=== PATIENT | female | born 1960 | race Caucasian/White ===

== ENCOUNTER 2018-09-14 07:25 | Day surgery (SDC) | payer OTHER ==
[2018-09-14] MEDS ORDERED: Lactated Ringers 1,000 ML IV SCH (07:45)
[2018-09-14] MEDS ORDERED: Cyanocobalamin (Vitamin B12) 1,000 MCG/ML SDV IM ONE (08:00)
[2018-09-14] MEDS ORDERED: Propofol 200 MG/20 ML SDV ONE (08:20)
[2018-09-14] MEDS ORDERED: fentaNYL 100 MCG/2 ML SDV ONE (08:20)
[2018-09-14] MEDS ORDERED: Midazolam 1 MG/ML 2 ML SDV ONE (08:20)
[2018-09-14] MEDS ORDERED: Glycopyrrolate 0.2 MG/ML 2 ML SDV IVPUSH ONE (08:30)
[2018-09-14] MEDS ORDERED: MVI, Adult with Vitamin K 10 ML, Thiamine 200 MG, Chromium/Copper/Mang/Selen/Zn 1 ML in... IV ONE ×4 (08:45)
--- NOTE | 2018-09-24 23:11 | OR ---
DATE OF PROCEDURE: 09/14/2018 PREOPERATIVE DIAGNOSIS: Dysphagia and heartburn status post sleeve gastrectomy. POSTOPERATIVE DIAGNOSES: 1. Upper GI endoscopy status post sleeve gastrectomy showing;. a. No stricturing or gastric outlet obstruction. 2. Mild amount of retained gastric bile and gastritis. OPERATIVE PROCEDURE: Upper GI endoscopy with antral biopsies for CLOtest. ANESTHESIA: IV sedation. INDICATION FOR PROCEDURE: This is a 58-year-old female status post sleeve gastrectomy done on 03/05/2018 presenting with some problems with dysphagia and heartburn. She did have a hiatal hernia repair at the time of the procedure. She also recently having some problems with dysphagia and heartburn and plan is to proceed with upper GI endoscopy with biopsies and/or dilation as indicated. Potential risks including bleeding and perforation were discussed, and the patient wishes to proceed. DETAILS OF PROCEDURE: The patient was taken to the operating room and placed in a left lateral decubitus position. IV sedation was administered, after which the upper GI endoscope was passed orally through the length of the esophagus and then into the stomach, and from there through the length of the stomach through the pyloric channel and then into the junction of the third and fourth portions of the duodenum. Findings included normal hypopharynx, larynx, upper esophageal sphincter, and esophageal body. At the EG junction, this area was fairly wide open. There was minimal if any gross inflammation at the esophagogastric junction and no upward extension of the gastroesophageal junction and mucosal line above the upper gastric folds. As one entered the stomach, there was some retained bile particularly in the more distal stomach which was associated with some redness without erosions or ulcers. The scope was then passed further distally through the pyloric channel into the junction of the third and fourth portions of the duodenum which were otherwise unremarkable. At this point, biopsies were obtained from the antrum and sent for CLOtest for H. pylori. Minimal bleeding from the biopsy sites was seen and the procedure then concluded. At this point, we will place the patient on Carafate 500 mg q.i.d. to be taken on an empty stomach to hopefully provide substantial protection from the bile. With regard to the dysphagia, will be started on Levsin 0.125 mg sublingual q.i.d. p.r.n. for possible esophageal spasm and she will be continuing the Protonix 40 mg a day that she presently has as well and follow up with Lenka Munroe as arranged in October. Demian Brooke MD /[id number]
== END 2018-09-14 12:15 | disposition home or self-care (01) ==
LOC: JP.SDS 07:25
PROVIDERS: ATTEND Surgery
DX: R13.10 Dysphagia, unspecified (principal); R12 Heartburn; K29.70 Gastritis, unspecified, without bleeding; Z98.84 Bariatric surgery status; Z88.6 Allergy status to analgesic agent
CPT/HCPCS: 43239; 87081; J2250; J2704; J3010; J3411; J3420; J3490; J7120

== ENCOUNTER 2019-09-08 05:13 | Day surgery (SDC) | payer OTHER ==
[2019-09-08] MEDS ORDERED: Lactated Ringers 1,000 ML IV SCH (06:00)
[2019-09-08] MEDS ORDERED: MVI, Adult with Vitamin K 10 ML, Thiamine 200 MG, Chromium/Copper/Mang/Selen/Zn 1 ML in... IV ONE ×4 (07:00)
[2019-09-08] MEDS ORDERED: Cyanocobalamin (Vitamin B12) 1,000 MCG/ML SDV IM ONE (07:00)
[2019-09-08] MEDS ORDERED: fentaNYL 100 MCG/2 ML SDV ONE (07:15)
[2019-09-08] MEDS ORDERED: Midazolam 1 MG/ML 2 ML SDV ONE (07:15)
[2019-09-08] MEDS ORDERED: Propofol 200 MG/20 ML SDV ONE (07:15)
[2019-09-08] MEDS ORDERED: Glycopyrrolate 0.2 MG/ML 2 ML SDV IVPUSH ONE (07:15)
--- NOTE | 2019-09-13 13:25 | OR ---
DATE OF PROCEDURE: 09/08/2019 SURGEON: Demian Brooke MD PREOPERATIVE DIAGNOSIS: Nausea and vomiting status post sleeve gastrectomy. POSTOPERATIVE DIAGNOSIS: Nausea and vomiting status post sleeve gastrectomy associated with large amount of retained gastric bile consistent with gastroparesis. OPERATIVE PROCEDURE: Esophagogastroduodenoscopy with antral biopsies for CLOtest. ANESTHESIA: IV sedation. INDICATION FOR PROCEDURE: This is a 59-year-old status post sleeve gastrectomy in February 2018, presenting with some ongoing mid epigastric abdominal pain along with nausea and some intermittent emesis. The plan is to proceed with upper GI endoscopy with biopsies as indicated. Potential risks including bleeding and perforation were discussed, and the patient wishes to proceed. DETAILS OF PROCEDURE: The patient was taken to the operating room and placed in a left lateral decubitus position. IV sedation was administered, after which the upper GI endoscope was passed orally through the length of the esophagus and into the stomach. This was then passed through the length of the sleeve gastrectomy through the antrum and into the proximal duodenum. Findings included normal hypopharynx, larynx, upper esophageal sphincter, and esophageal body. This patient did have a small recurrent hiatal hernia, but not associated with any significant inflammation grossly at or around the EG junction. Within the stomach, there was a large amount of retained bile and diffuse redness associated with that. This would be suggestive of the patient having an element of gastroparesis. Otherwise, the pyloric channel and proximal duodenum were unremarkable. The scope was then withdrawn and biopsies obtained from the antrum and sent for CLOtest for H. pylori. Minimal bleeding from the biopsy sites was seen, and the procedure was then concluded. The patient was taken to the recovery room in satisfactory condition. The plan will be to start the patient on Reglan 10 mg 1/2 hour before breakfast and supper, and we will see the patient back on 09/27. If medical management is unsuccessful in terms of alleviating symptoms, the standard approach would be converting to a Charline-en-Y gastric bypass with concurrent repair of the diaphragmatic hernia. Demian Brooke MD /[id number]
== END 2019-09-08 08:49 | disposition home or self-care (01) ==
LOC: JP.SDS 05:13
PROVIDERS: ATTEND Surgery
DX: R11.2 Nausea with vomiting, unspecified (principal); R10.13 Epigastric pain; K44.9 Diaphragmatic hernia without obstruction or gangrene; G47.33 Obstructive sleep apnea (adult) (pediatric); I10 Essential (primary) hypertension; K21.9 Gastro-esophageal reflux disease without esophagitis; Z98.84 Bariatric surgery status
CPT/HCPCS: 43239; 87081; J2250; J2704; J3010; J3490; J7120

== ENCOUNTER 2020-11-08 09:41 | Day surgery (SDC) | payer BC, MEDICARE, OTHER ==
[~2020-11-08 09:41] MED LIST: MVI, Adult with Vitamin K 10 ML, Thiamine 200 MG, Zinc/Copper/Manganese/Selenium 1 ML i... IV ONE
[2020-11-08] MEDS ORDERED: fentaNYL 100 MCG/2 ML SDV ONE (09:55)
[2020-11-08] MEDS ORDERED: Propofol 200 MG/20 ML SDV ONE (09:55)
[2020-11-08] MEDS ORDERED: Midazolam 1 MG/ML 2 ML SDV ONE (09:56)
[2020-11-08] MEDS ORDERED: Cyanocobalamin (Vitamin B12) 1,000 MCG/ML SDV IM ONE (10:30)
[2020-11-08] MEDS ORDERED: Lactated Ringers 1,000 ML IV SCH (10:45)
[2020-11-08] MEDS ORDERED: Glycopyrrolate 0.2 MG/ML 2 ML SDV IVPUSH ONE (10:45)
[2020-11-08] MEDS ORDERED: MVI, Adult with Vitamin K 10 ML, Thiamine 200 MG, Chromium/Copper/Mang/Selen/Zn 1 ML in... IV ONE ×4 (11:00)
--- NOTE | 2020-11-14 12:17 | OR ---
DATE OF PROCEDURE: 11/08/2020 SURGEON: Demian Brooke MD PREOPERATIVE DIAGNOSIS: Severe heartburn and episodes of regurgitation, status post sleeve gastrectomy. POSTOPERATIVE DIAGNOSES: 1. Severe heartburn and episodes of regurgitation, status post sleeve gastrectomy. 2. Large amount of retained bilious secretions within the stomach with probable recurrent element of hiatal hernia. OPERATIVE PROCEDURE: Upper GI endoscopy. ANESTHESIA: IV sedation. INDICATION FOR PROCEDURE: This is a 60-year-old female, status post sleeve gastrectomy along with hiatal hernia repair on 03/05/2018. Over the last week, she has had increasing problems with severe reflux and occasionally episodes of regurgitation. She does also wake up sometimes coughing having aspirated some element of the reflux material. She has been on Protonix 40 mg b.i.d. along with intermittent oral antacids such as Tums, severe reflux problems. Upper GI endoscopy is to be undertaken for evaluation. Potential risks of the procedure including bleeding and perforation were discussed, and the patient wishes to proceed. DETAILS OF PROCEDURE: The patient was taken to the operating room, placed in a left lateral decubitus position. IV sedation was administered, after which the upper GI endoscope was passed orally through the length of the esophagus and into the stomach and from there through the pyloric channel and into the proximal duodenum. Findings included some redness in the hypopharynx, larynx, upper esophageal sphincter consistent with some ongoing reflux. Within the stomach, there was a fairly large amount of bile-stained material. This would be consistent with the patient probably having an element of gastroparesis contributing to the reflux. The EG junction itself was wide open and there was probably some element of recurrent hiatal hernia present. Otherwise, the stomach, particularly in the antral area was diffusely reddened, likely related to the bile present and the pyloric channel and proximal duodenum were unremarkable. Scope was then withdrawn and the procedure was then concluded. The patient was taken to the recovery room in satisfactory condition. The endoscopic findings and based on clinical situation, the best approach at this point would be to proceed with conversion of this patient to Charline-en-Y gastric bypass. Insurance company will be contacted regarding that issue. Demian Brooke MD /[id number]
== END 2020-11-08 13:10 | disposition home or self-care (01) ==
LOC: JP.SDS 09:41
PROVIDERS: ATTEND Surgery
DX: K21.9 Gastro-esophageal reflux disease without esophagitis (principal); G47.33 Obstructive sleep apnea (adult) (pediatric); I10 Essential (primary) hypertension; Z98.84 Bariatric surgery status
CPT/HCPCS: J2250; J2704; J3010; J3490; J7120

== ENCOUNTER 2020-12-25 07:15 | Inpatient (IN) | payer BC ==
[2020-12-25] MEDS ORDERED: Celecoxib 200 MG Cap PO SCH (08:00)
[2020-12-25] MEDS ORDERED: Acetaminophen 500 MG Tab PO ONE (08:00)
[2020-12-25] MEDS ORDERED: Scopolamine 1.5 MG Transdermal Patch TOP SCH (08:05)
[2020-12-25] MEDS: Dextrose 5%-Lactated Ringers 1,000 ML IV SCH ×2 (08:47→15:03)
[2020-12-25] MEDS ORDERED: cefOXitin 2 GM in Sodium Chloride 0.9% 50 ML IV ONE (09:00)
[2020-12-25] MEDS ORDERED: Dexamethasone 4 MG/ML SDV ONE (09:41)
[2020-12-25] MEDS ORDERED: Propofol 200 MG/20 ML SDV ONE (09:41)
[2020-12-25] MEDS ORDERED: Glycopyrrolate 0.2 MG/ML 5 ML MDV ONE (09:41)
[2020-12-25] MEDS ORDERED: Succinylcholine 200 MG/10 ML MDV ONE (09:41)
[2020-12-25] MEDS ORDERED: Neostigmine Methylsulfate 1 MG/ML 5 ML Syringe ONE (09:41)
[2020-12-25] MEDS ORDERED: Rocuronium 50 MG/5 ML Vial ONE (09:41)
[2020-12-25] MEDS ORDERED: Ondansetron 4 MG/2 ML SDV ONE (09:41)
[2020-12-25] MEDS ORDERED: fentaNYL 250 MCG/5 ML SDV ONE ×2 (09:41→11:37)
[2020-12-25] MEDS ORDERED: Lactated Ringers 1,000 ML ONE (09:50)
[2020-12-25] MEDS ORDERED: Ketamine 18 MG in Sodium Chloride 0.9% 19.82 ML IV SCH (10:00)
[2020-12-25] MEDS ORDERED: Magnesium Sulfate 2.2 GM in Sodium Chloride 0.9% 100 ML IV SCH (10:00)
[2020-12-25] MEDS ORDERED: Ropivacaine 34 ML, dexAMETHasone 8 MG, EPINEPHrine 0.4 MG, Sodium Chloride 0.9% 43.6 ML NERVRT SCH ×4 (10:00)
[2020-12-25] MEDS ORDERED: Magnesium Sulfate 2.4 GM in Sodium Chloride 0.9% 250 ML IV ONE (10:00)
[2020-12-25] MEDS ORDERED: Ketamine 500 MG/5 ML MDV IV SCH (10:00)
[2020-12-25] MEDS: cefOXitin 2 GM Vial ONE ×2 (12:01→12:40)
[2020-12-25] MEDS ORDERED: Labetalol 20 MG/4 ML Syringe ONE (12:02)
[2020-12-25] MEDS ORDERED: hydrOXYzine HCL 100 MG/2 ML SDV IM ONE (13:12)
[2020-12-25] MEDS ORDERED: fentaNYL 100 MCG/2 ML SDV IVPUSH ONE (13:12)
[2020-12-25] MEDS ORDERED: Cyclobenzaprine 10 MG Tab PO PRN (15:19)
[2020-12-25] MEDS ORDERED: Dextrose 5%-Lactated Ringers 1,000 ML IV SCH (15:30)
[2020-12-25] MEDS ORDERED: Albuterol/Ipratropium 3.0-0.5 MG/3 ML Neb Soln INH PRN (15:50)
[2020-12-25] MEDS ORDERED: HYDROmorphone 1 MG/ML Syringe IV PRN (16:00)
[2020-12-25] MEDS ORDERED: MVI, Adult with Vitamin K 10 ML, Thiamine 200 MG, Zinc/Copper/Manganese/Selenium 1 ML i... IV SCH ×4 (16:00)
[2020-12-25] MEDS ORDERED: Acetaminophen 500 MG Tab PO PRN (16:00)
[2020-12-25] MEDS ORDERED: Labetalol 20 MG/4 ML Syringe IVPUSH PRN (16:00)
[2020-12-25] MEDS ORDERED: traMADol 50 MG Tab PO PRN (16:00)
[2020-12-25] MEDS ORDERED: HYDROmorphone 0.5 MG/0.5 ML Syringe IVPUSH PRN (16:00)
[2020-12-25] MEDS ORDERED: diphenhydrAMINE 50 MG/ML SDV IVPUSH PRN (16:00)
[2020-12-25] MEDS ORDERED: Metoclopramide 10 MG/2 ML SDV IVPUSH PRN (16:00)
[2020-12-25] MEDS ORDERED: hydrOXYzine HCL 100 MG/2 ML SDV IM PRN (16:00)
[2020-12-25] MEDS ORDERED: Calcium Gluconate 10% 1 GM/10 ML SDV IVPUSH PRN (16:00)
[2020-12-25] MEDS ORDERED: Pantoprazole 40 MG Vial IVPUSH SCH (16:00)
[2020-12-25] MEDS: cefOXitin 2 GM in Sodium Chloride 0.9% 50 ML IV SCH ×2 (17:07→22:27)
[2020-12-25] MEDS: Ondansetron 4 MG/2 ML SDV IVPUSH PRN (17:07)
[2020-12-25] MEDS: Hydrochlorothiazide 12.5 MG Cap PO SCH ×2 (18:53→19:17)
[2020-12-25] MEDS: Acetaminophen 500 MG Tab PO SCH (19:16)
[2020-12-25] MEDS: Losartan 50 MG Tab PO SCH (20:46)
[2020-12-25] MEDS: Montelukast 10 MG Tab PO SCH (20:48)
[2020-12-25] MEDS: Heparin Sodium 5,000 Units/ML Vial SUBCUT SCH (20:48)
[2020-12-26] MEDS: Acetaminophen 500 MG Tab PO SCH ×3 (00:47→15:08)
[2020-12-26] MEDS ORDERED: Iopamidol 612 MG/ML 50 ML SDV PO STA (00:49)
[2020-12-26] MEDS: cefOXitin 2 GM in Sodium Chloride 0.9% 50 ML IV SCH ×4 (04:40→22:03)
[2020-12-26] MEDS ORDERED: Ondansetron 4 MG Tab.DIS PO PRN (07:34)
[2020-12-26] MEDS ORDERED: Dextrose 5%-Lactated Ringers 1,000 ML IV SCH (07:45)
[2020-12-26] MEDS: Heparin Sodium 5,000 Units/ML Vial SUBCUT SCH ×2 (08:18→20:58)
[2020-12-26] MEDS: SCOPOLAMINE PATCH CHECK TOP SCH (08:27)
[2020-12-26] MEDS: Hydrochlorothiazide 12.5 MG Cap PO SCH ×2 (08:58→15:09)
[2020-12-26] MEDS: Losartan 50 MG Tab PO SCH ×2 (09:00→20:58)
--- NOTE | 2020-12-26 09:11 | CR ---
[facility] HISTORY: Postbariatric surgery FINDINGS: Patient swallowed water-soluble contrast. Upright views of the abdomen show no evidence of extravasation or obstruction. There is a drainage tube in the left upper quadrant IMPRESSION: Status post bariatric surgery/revision No extravasation or obstruction seen
--- NOTE | 2020-12-26 09:54 | PN ---
DATE OF SERVICE: 12/26/2020 SUBJECTIVE: Teresita's vital signs have been stable. Her pain has been controlled with a FINANCIAL BUSINESS ANALYST. Oral intake was 300. Output 2300. MAXIMO drain put out 150 mL of a light red drainage. Her upper GI was normal this morning. REVIEW OF SYSTEMS: Remainder of review of systems negative for any pertinent positives and negatives. OBJECTIVE: GENERAL: Teresita Araiza is a pleasant 60-year-old female. She is alert and orientated. VITAL SIGNS: TPR 97.8, 51, 14, blood pressure 154/65. HEENT: Negative. NECK: Supple. HEART: Regular rate and rhythm. LUNGS: Clear. ABDOMEN: Dressings dry and intact. Abdominal binder is on. EXTREMITIES: Without peripheral edema. ASSESSMENT: Diagnostic laparoscopy with: 1. Conversion of sleeve gastrectomy to Charline-en-Y gastric bypass. 2. Repair of recurrent paraesophageal hernia. 3. Partial gastrectomy. POSTOPERATIVE DIAGNOSES: 1. Recurrent hiatal hernia with symptoms of gastroesophageal reflux disease refractory to medical management, status post sleeve gastrectomy. 2. Portion of the stomach devascularized, status post formation of gastric pouch. 3. Date of procedure: 12/25/2020. Surgeon: Demian Brooke MD. PLAN: 1. Decrease IV to 100 mL per hour. 2. Step 2 gastric bypass diet without cereal. 3. Dressing off, may shower. 4. Zofran ODT 4 mg q.4 hours p.r.n. nausea. 5. Communication order: 3 med cups per hour, 1 every 20 minutes. 6. We will evaluate p.r.n. or in a.m. Lenka Munroe PA-C /[id number]
[2020-12-26] MEDS: Ondansetron 4 MG/2 ML SDV IVPUSH PRN (12:26)
[2020-12-26] MEDS: oxyCODONE 5 MG Tab PO PRN ×2 (15:12→20:57)
[2020-12-26] MEDS ORDERED: MVI, Adult with Vitamin K 10 ML, Thiamine 200 MG, Zinc/Copper/Manganese/Selenium 1 ML i... IV SCH ×4 (16:00)
[2020-12-26] MEDS ORDERED: Pantoprazole 40 MG Delayed-Release Granules 1 Packet PO SCH (16:00)
--- NOTE | 2020-12-26 17:57 | PCM.EKG ---
#1 Interpretation EKG Date: 12/25/20 Time: 08:36 Rhythm: NSR Rate (Beats/Min): 55 Wallace: Normal P-Wave: Present QRS: Normal ST-T: Normal QT: Normal MO/PQ Interval: normal Comparison: NA - No Prior EKG
[2020-12-26] MEDS: Montelukast 10 MG Tab PO SCH (20:58)
[2020-12-27] MEDS: Acetaminophen 500 MG Tab PO SCH ×2 (00:31→07:49)
[2020-12-27] MEDS: oxyCODONE 5 MG Tab PO PRN (06:16)
[2020-12-27] MEDS: Hydrochlorothiazide 12.5 MG Cap PO SCH ×2 (07:49→14:25)
[2020-12-27] MEDS: Losartan 50 MG Tab PO SCH (08:00)
[2020-12-27] MEDS: Heparin Sodium 5,000 Units/ML Vial SUBCUT SCH (08:01)
[2020-12-27] MEDS: SCOPOLAMINE PATCH CHECK TOP SCH (08:56)
[2020-12-27] MEDS ORDERED: Cyanocobalamin (Vitamin B12) 1,000 MCG/ML SDV IM ONE (09:00)
[2020-12-27] MEDS ORDERED: Magnesium Hydroxide 400 MG/5 ML Susp 30 ML Cup PO ONE (10:55)
--- NOTE | 2020-12-27 13:43 | DISCH ---
ADMISSION DIAGNOSES: 1. Status post sleeve gastrectomy with gastroesophageal reflux disease refractory to medical management. 2. Recurrent hiatal hernia. DISCHARGE DIAGNOSES: Diagnostic laparoscopy with: 1. Conversion of sleeve gastrectomy to Charline-en-Y gastric bypass. 2. Repair of recurrent paraesophageal hernia. 3. Partial gastrectomy. POSTOPERATIVE DIAGNOSES: 1. Recurrent hiatal hernia with symptoms of gastroesophageal reflux disease refractory to medical management, status post sleeve gastrectomy. 2. Portion of the stomach devascularized, status post formation of gastric pouch. 3. Date of procedure: 12/25/2020. Surgeon: Demian Brooke MD. HISTORY: Teresita Araiza is a pleasant 60-year-old female with gastroesophageal reflux disease refractory to medical management. After preoperative evaluation and discussion of possible risks and possible complications, she wished to proceed with surgical procedure. HOSPITAL COURSE: Teresita had her surgery on 12/25/2020. She had no operative complications. On postoperative day #1, she was started on a step 2 gastric bypass without cereal. Her pain was well managed. Activity was good. Oral intake adequate. She received adequate dietary instruction and she was able to be discharged to home on postoperative day #2. PHYSICAL EXAMINATION: GENERAL: Teresita is a pleasant 60-year-old female. VITAL SIGNS: Height is 5 feet 6.5 inches, weight is 167 pounds. TPR is 97.3, 60, 16, blood pressure 143/78. HEENT: Negative. NECK: Supple. HEART: Regular rate and rhythm. LUNGS: Clear. ABDOMEN: Trocar incisions look good. Sutures intact. MAXIMO drain will be removed prior to discharge. Abdominal binder has been on. EXTREMITIES: Without peripheral edema. DISPOSITION: Discharged to home. CONDITION: Stable and improving. FOLLOWUP APPOINTMENT: Lenka Munroe PA-C, on 01/03/2021 at 9 a.m. HOME MEDICATIONS: Oxycodone 5 mg p.o. q.6 hours p.r.n. pain, #12; Zofran ODT 4 mg q.4 hours p.r.n. nausea, #30; acetaminophen 1000 mg q.6 hours scheduled at least 2 days, then p.r.n. Continue with home medication of hydrochlorothiazide 12.5 mg b.i.d., Cozaar 50 mg p.o. b.i.d., Singulair 10 mg p.o. daily, and Protonix 40 mg p.o. b.i.d. DIET: Step 2 gastric bypass diet without cereal until 01/09/2021. Drink 8 to 10 glasses of water a day. ACTIVITY: No lifting greater than 10 pounds for [address] for 1 [address]. Shower/bathing: May shower. DISCHARGE INSTRUCTIONS: Incision care, keep incision sites clean and dry. Wear abdominal binder for 2 weeks and then as tolerated. Notify provider if any fever, increased pain, swelling, redness, drainage, nausea, or vomiting. SPECIAL INSTRUCTIONS: Use incentive spirometer 10 times every hour while awake for 1 week. /[id number]
--- NOTE | 2020-12-28 07:48 | OR ---
DATE OF PROCEDURE: 12/25/2020 SURGEON: Demian Brooke MD PREOPERATIVE DIAGNOSIS: Recurrent hiatal hernia with severe gastroesophageal reflux disease, status post sleeve gastrectomy. POSTOPERATIVE DIAGNOSES: 1. Recurrent hiatal hernia with severe gastroesophageal reflux disease, status post sleeve gastrectomy. 2. Portion of stomach devascularized status post formation of gastric pouch. OPERATIVE PROCEDURES: Diagnostic laparoscopy with: 1. Conversion of sleeve gastrectomy to Charline-en-Y gastric bypass (93039). 2. Repair of recurrent paraesophageal diaphragmatic hernia (16841). 3. Partial gastrectomy (98582). ANESTHESIA: General. METAL SPRAYER PRODUCTION: Lenka Munroe PA-C INDICATIONS FOR PROCEDURE: This is a 60-year-old female presenting with severe reflux disease with some element of recurrent hiatal hernia, status post previous sleeve gastrectomy. After preoperative evaluation and discussion, she wished to proceed with a conversion to Charline-en-Y gastric bypass. Potential risks of the procedure including bleeding, infection, leaks from various GI tract closures, problems with bowel obstruction over time were all reviewed, and the patient wishes to proceed. DETAILS OF PROCEDURE: The patient was taken to the operating room and placed in a supine position. After general endotracheal anesthesia was induced, a Broderick catheter was inserted, which was removed at the end of the procedure. The patient was placed in a lithotomy position and the abdomen prepped and draped. A 15 cm inferior and 5 cm left of the xiphoid process, a transverse incision was made and peritoneal cavity entered under direct vision with an Optiview trocar, inflated to 15 mmHg pressure with CO2. Laparoscope was reinserted. No underlying trocar insertion site injuries were seen. Five additional trocars were placed across the upper and mid abdomen. Bilateral transversus abdominis plane blocks were placed. At this point, the small bowel was identified at the ligament of Treitz and traced down 125 cm from that point, was divided with a HARSHAL stapler. Small bowel was then traced out additional 140 cm where the [id number] enteroenterostomy was accomplished with internal firing of the Endo-HARSHAL 60 mm stapler. Common opening was then closed transversely with the same stapler, angles anastomosed, mesenteric defect approximated with some 0 Ethibond stitch along with fibrin sealant. The Charline limb was brought through with an antecolic approach up to the level of the gastroesophageal junction without tension. The liver was then retracted anteriorly. Some adhesions between the liver and the sleeve gastrectomy were taken down with Harmonic Scalpel. At this point then the sleeve gastrectomy was well identified in its proximal extent and dissection behind the esophagogastric junction roughly 2 cm below that level was accomplished and the stomach was then divided with a HARSHAL black load. There was some devascularization of the corner of the stomach, which was then resected with additional HARSHAL black load as well and the stomach specimen delivered from the field. The anvil of a 25 mm EEA stapler was then attached to [place] sump-type tube. The latter was brought down through the mouth, taken out with a small opening in the gastric pouch allowing the anvil likewise to be pulled down to within the gastric pouch. The Charline limb was then opened and the main body of the EEA stapler was brought several centimeters up and into the small bowel, brought up to the anvil and united with it, thus creating the gastrojejunostomy. Upon removal of the stapler, double donuts of mucosa were noted within it. The small bowel was closed off with a vascular staple line. Gastrojejunostomy was reinforced with some 3-0 Vicryl seromuscular stitch along with fibrin sealant and at that point, no further problems were noted. A Jarrett-Christian drain was taken out through the left lateral trocar site. Leak test had been accomplished with injection of 120 mL of air in the gastric pouch while submerging it with cefoxitin-containing saline solution. No leaks were seen. Trocars were then sequentially removed. The peritoneal cavity deflated. Incisions were closed with some 4-0 Vicryl skin stitch, which was also used to fix the drain and the patient was taken to the recovery room in satisfactory condition. Physician therapist's assistant, Lenka Munroe, played an essential role in assisting in this case, helping to position the patient, retract structures as needed, as well as cutting and applying sutures. Her presence improved patient safety and decreased the operative time. Demian Brooke MD /[id number]
== END 2020-12-27 14:27 | disposition home or self-care (01) | DRG 220 ==
LOC: EDSTATUS 07:15 → JP.SDS 07:50 → JP.MS 14:34
PROVIDERS: ADMIT Surgery; ATTEND Surgery
PROC: 0DB64ZZ Excision of Stomach, Percutaneous Endoscopic Approach (ICD-10-PCS; principal; 2020-12-25)
PROC: 0D164ZA Bypass Stomach to Jejunum, Percutaneous Endoscopic Approach (ICD-10-PCS; 2020-12-25)
PROC: 0BQT4ZZ Repair Diaphragm, Percutaneous Endoscopic Approach (ICD-10-PCS; 2020-12-25)
DX: K21.9 Gastro-esophageal reflux disease without esophagitis (principal); K44.9 Diaphragmatic hernia without obstruction or gangrene; I10 Essential (primary) hypertension; G47.33 Obstructive sleep apnea (adult) (pediatric); Z90.49 Acquired absence of other specified parts of digestive tract
CPT/HCPCS: 36415; 74240; 74240-26; 82947; 86850; 86900; 86901; 93005; 94762; A9270-GY; C9113; J0171; J0330; J0694; J1100; J1644; J2405; J2704; J2710; J2765; J2795; J3010; J3410; J3411; J3420; J3490; J7030; J7120; J7121; Q9967

== ENCOUNTER 2021-02-22 08:16 | Day surgery (SDC) | payer BC ==
[~2021-02-22 08:16] MED LIST changes: -MVI, Adult with Vitamin K 10 ML, Thiamine 200 MG, Zinc/Copper/Manganese/Selenium 1 ML i... IV ONE; +Midazolam 1 MG/ML 2 ML SDV ONE; +Propofol 200 MG/20 ML SDV ONE; +fentaNYL 100 MCG/2 ML SDV ONE
[2021-02-22] MEDS ORDERED: Lactated Ringers 1,000 ML IV ONE (09:00)
[2021-02-22] MEDS ORDERED: Cyanocobalamin (Vitamin B12) 1,000 MCG/ML SDV IM ONE (09:00)
[2021-02-22] MEDS ORDERED: Glycopyrrolate 0.2 MG/ML 2 ML SDV IVPUSH ONE (10:00)
[2021-02-22] MEDS ORDERED: MVI, Adult with Vitamin K 10 ML, Thiamine 200 MG, Zinc/Copper/Manganese/Selenium 1 ML i... IV ONE ×4 (10:00)
[2021-02-22] MEDS ORDERED: Dexamethasone 4 MG/ML SDV ONE (10:37)
--- NOTE | 2021-03-11 11:25 | OR ---
DATE OF PROCEDURE: 02/22/2021 SURGEON: Demian Brooke MD PREOPERATIVE DIAGNOSIS: Possible strictured gastrojejunostomy versus partial small bowel obstruction. POSTOPERATIVE DIAGNOSES: 1. 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 2. Retained bile in the pouch and Charline limb suggestive of partial small bowel obstruction. OPERATIVE PROCEDURE: Upper GI endoscopy with dilation of gastrojejunostomy ([id number]). ANESTHESIA: IV sedation. INDICATION FOR PROCEDURE: The patient presents with some ongoing nausea and reflux-type symptoms. The plan is to proceed with upper GI endoscopy with biopsies and/or dilation as indicated. Potential risks including bleeding and perforation were discussed. The patient's symptoms are fairly suggestive of partial small bowel obstruction as well, and given this, we will look for signs of that as part of the endoscopic examination. DETAILS OF PROCEDURE: The patient was taken to the operating room and placed in a left lateral decubitus position. IV sedation was administered; after which, the upper GI endoscope was passed orally through the length of esophagus into the gastric pouch and from there through the gastrojejunostomy roughly 20 cm into the Charline limb. Positive findings included a mild stricture of the gastrojejunostomy. The scope was easily passed through this area. More striking finding was a large amount of bile present within the distal esophagus, gastric pouch, and Charline limb suggestive of a partial small bowel obstruction. At this point, a Bard gastrointestinal balloon catheter was then centered across the anastomosis and inflated to 36-Canadian size, and this was held in position for 1 minute; after which, balloon catheter was deflated and withdrawn. A slight amount of dilation had occurred and no complications were evident. The procedure was then concluded. The patient was taken to the recovery room in satisfactory condition. Demian Brooke MD /[id number]
== END 2021-02-22 12:10 | disposition home or self-care (01) ==
LOC: JP.SDS 08:16
PROVIDERS: ATTEND Surgery
DX: K91.89 Other postprocedural complications and disorders of digestive system (principal); G47.33 Obstructive sleep apnea (adult) (pediatric); I10 Essential (primary) hypertension; K21.9 Gastro-esophageal reflux disease without esophagitis; Z98.84 Bariatric surgery status
CPT/HCPCS: 43235; C1726; J1100; J2250; J2704; J3010; J3411; J3420; J3490; J7120

== ENCOUNTER 2021-02-22 13:51 | Inpatient (IN) | payer BC ==
--- NOTE | 2021-02-22 14:18 | EDM.PDOC ---
ED HPI GENERAL MEDICAL PROBLEM - General Chief Complaint: Gastrointestinal Problem Stated Complaint: SEVERE STOMACH PAIN Time Seen by Provider: 02/22/21 14:00 Source of Information: Reports: Patient, Provider History Limitations: Reports: No Limitations - History of Present Illness INITIAL COMMENTS - FREE TEXT/NARRATIVE: 60 yo female had upper endoscopy with esophageal dilatation earlier today. She had some pain before the scoping, but it is much worse now. Has not vomited or had a BM since the procedure. Her pain is to the upper abdomen. She called Dr. Brooke who performed today's procedure and was told to go to the ER. Onset: Today Onset Date: 02/22/21 Duration: Hour(s): Location: Reports: Abdomen Quality: Reports: Ache Severity: Moderate Improves with: Reports: None Worsens with: Reports: None Context: Reports: Other (See HPI) Associated Symptoms: Reports: No Other Symptoms. Denies: Fever/Chills, Nausea/Vomiting Treatments DIRECTOR INSTRUCTIONAL MATERIAL: Reports: Other (see below) (none) Abdominal Pain Score (Numeric/FACES): 7 - Related Data Allergies Allergy/AdvReac Type Severity Reaction Status Date / Time celecoxib Allergy Tachycardia Verified 02/22/21 08:52 Home Meds: Home Meds Pantoprazole Sodium [Protonix] 40 mg PO BID 03/03/18 [History] Montelukast [Singulair] 10 mg PO DAILY 11/05/20 [History] Azelastine HCl 2 spray MARIALU[place] BID PRN 11/08/20 [History] Losartan [Cozaar] 50 mg PO BID 11/08/20 [History] Acetaminophen [Tylenol Extra Strength] 500 mg PO Q8H PRN tablet 12/27/20 [Rx] Ondansetron [Zofran ODT] 4 mg PO Q4H PRN #30 tab.dis 12/27/20 [Rx] Biotin 10,000 mcg PO DAILY 02/19/21 [History] Calcium Citrate/Vitamin D3 [Calcium Citrate - Vit D Caplet] 1 tab PO DAILY 02/19/21 [History] Cholecalciferol (Vitamin D3) [Vitamin D3] 1,000 unit PO DAILY 02/19/21 [History] Cyanocobalamin (Vitamin B-12) [Vitamin B-12] 1,000 mcg PO DAILY 02/19/21 [History] Hyoscyamine [Levsin] 0.125 mg SL Q4H PRN 02/19/21 [History] Multivit-Min/Iron/Folic Acid/K [[facility] One Daily Women's Formula] 1 tab PO BID 02/19/21 [History] Prochlorperazine Maleate [Compazine] 10 mg PO Q48H 02/19/21 [History] Vitamin B Complex [B Complex] 1 tab PO DAILY 02/19/21 [History] Past Medical History HEENT History: Reports: Allergic Rhinitis, Impaired Vision Other HEENT History: wears glasses Cardiovascular History: Reports: Arrhythmia, Heart Murmur, Hypertension, Other (See Below) Other Cardiovascular History: tachycardia Respiratory History: Reports: Sleep Apnea Gastrointestinal History: Reports: Chronic Constipation, Colon Polyp, Diverticulosis, GERD, Hemorrhoids, Hiatal Hernia Genitourinary History: Reports: None RIGGING SLINGER History: Reports: , Spontaneous Musculoskeletal History: Reports: Back Pain, Chronic, Fracture, Neck Pain, Chronic, Osteoarthritis Endocrine/Metabolic History: Reports: Obesity/BMI 30+ Hematologic History: Reports: B12 Deficiency - Infectious Disease History Infectious Disease History: Reports: Chicken Pox, Measles - Past Surgical History Head Surgeries/Procedures: Reports: None HEENT Surgical History: Reports: None Cardiovascular Surgical History: Reports: None Respiratory Surgical History: Reports: None GI Surgical History: Reports: Bariatric Procedure, Cholecystectomy, Colonoscopy, EGD, Polypectomy Female Surgical History: Reports: Breast Biopsy, D&C Endocrine Surgical History: Reports: None Musculoskeletal Surgical History: Reports: Carpal Tunnel Dermatological Surgical History: Reports: None Social & Family History - Family History Family Medical History: No Pertinent Family History - Caffeine Use Caffeine Use: Reports: None ED ROS GENERAL - Review of Systems Review Of Systems: See Below Constitutional: Reports: No Symptoms HEENT: Reports: No Symptoms Respiratory: Reports: No Symptoms Cardiovascular: Reports: No Symptoms Endocrine: Reports: No Symptoms GI/Abdominal: Reports: Abdominal Pain, Distension (feels mildly bloated). Denies: Black Stool, Bloody Stool, Constipation, Diarrhea, Hematemesis, Hematochezia, Melena, Nausea, Vomiting : Reports: No Symptoms ED EXAM, GI/ABD - Physical Exam Exam: See Below Exam Limited By: No Limitations General Appearance: Alert, WD/WN, No Apparent Distress Eyes: Bilateral: Normal Appearance Ears: Normal External Exam, Normal Canal, Hearing Grossly Normal Nose: Normal Inspection, No Blood Throat/Mouth: Normal Inspection, Normal Lips, Normal Oropharynx, Normal Voice, No Airway Compromise Head: Atraumatic, Normocephalic Neck: Normal Inspection Respiratory/Chest: No Respiratory Distress, Lungs Clear, Normal Breath Sounds, No Accessory Muscle Use Cardiovascular: Regular Rate, Rhythm, No Edema GI/Abdominal Exam: Normal Bowel Sounds, Soft, Non-Tender, No Distention. No: Distended Extremities: Normal Inspection Neurological: Alert, Oriented, CN II-XII Intact, Normal Cognition, No Motor/Sensory Deficits Psychiatric: Normal Affect, Normal Mood Skin Exam: Warm, Dry, Intact, Normal Color, No Rash Course - Vital Signs Text/Narrative:: Dr. Brooke called @ 1714h Last Recorded V/S: Last Vital Signs Temp 36.8 C 02/22/21 14:30 Pulse 76 02/22/21 16:53 Resp 18 02/22/21 14:30 BP 182/85 H 02/22/21 16:53 Pulse Ox 99 02/22/21 15:01 - Orders/Labs/Meds Orders: Active Orders 24 hr Category Date Time Status Iopamidol [Isovue-300 (61%)] Med 02/22/21 14:34 Active 100 ml IV . DIRECTED PRN Sodium Chloride 0.9% [Normal Saline] 75 ml Med 02/22/21 14:45 Active IV ASDIRECTED Medication Orders Sodium Chloride (Normal Saline) 75 mls @ 3 mls/sec IV ASDIRECTED MARIA DEL ROSARIO Stop: 02/22/21 18:00 Last Admin: 02/22/21 16:15 Dose: 3 mls/sec Documented by: SHANNAN Iopamidol (Iopamidol 612 Mg/Ml 100 Ml Bottle) 100 ml IV . DIRECTED PRN PRN Reason: RADIOLOGY EXAM Stop: 02/23/21 14:35 Last Admin: 02/22/21 16:14 Dose: 100 ml Documented by: SHANNAN Meds: Medications Generic Name Dose Route Start Last Admin Trade Name Freq PRN Reason Stop Dose Admin Sodium Chloride 75 mls @ 3 mls/sec 02/22/21 14:45 02/22/21 16:15 Normal Saline IV 02/22/21 18:00 3 mls/sec ASDIRECTED MARIA DEL ROSARIO Administration Iopamidol 100 ml 02/22/21 14:34 02/22/21 16:14 Iopamidol 612 Mg/Ml 100 Ml Bottle IV 02/23/21 14:35 100 ml . DIRECTED PRN Administration RADIOLOGY EXAM Discontinued Medications Generic Name Dose Route Start Last Admin Trade Name Heide PRN Reason Stop Dose Admin Al Hydroxide/Mg Hydroxide 15 0 ml 02/22/21 14:07 02/22/21 14:36 ml/ Lidocaine HCl 15 ml PO 02/22/21 14:08 30 ml ONETIME ONE Administration Hydromorphone HCl 1 mg 02/22/21 15:38 02/22/21 15:48 Hydromorphone 1 Mg/Ml Syringe IM 02/22/21 15:39 1 mg ONETIME ONE Administration Iopamidol 30 ml 02/22/21 14:34 02/22/21 14:59 Iopamidol 612 Mg/Ml 50 Ml Sdv PO 02/22/21 14:35 30 ml ASDIRECTED ONE Administration Sodium Chloride 10 ml 02/22/21 14:34 02/22/21 16:15 Sodium Chloride 0.9% 10 Ml Syringe FLUSH 02/22/21 14:35 10 ml ONETIME ONE Administration - Radiology Interpretation Free Text/Narrative:: CT abd/pelvis with water soluble oral contrast- IMPRESSION: 1. Multiple mildly distended loops of proximal and distal small bowel, with intervening decompressed central small bowel loops. Findings could represent partial obstruction versus nonspecific enteritis changes. 2. Mild wall thickening of the distal esophagus could be inflammatory. No evidence of perforation. 3. Stable 3.7 cm left adnexal cystic lesion. This could be further evaluated with pelvic ultrasound. Please note that all CT scans at this facility use dose modulation, iterative reconstruction, and/or weight-based dosing when appropriate to reduce radiation dose to as low as reasonably achievable. Departure - Departure Time of Disposition: 17:45 Disposition: Admitted As Inpatient 64 Condition: Fair Clinical Impression: Partial small bowel obstruction - Discharge Information Referrals: PCP,None [Primary Care Provider] - Forms: ED Department Discharge Sepsis Event Note (ED) - Focused Exam Vital Signs: Vital Signs Temp Pulse Resp BP Pulse Ox 02/22/21 16:53 76 182/85 H 02/22/21 15:01 60 145/67 H 99 02/22/21 14:30 36.8 C 59 L 18 176/82 H 100 02/22/21 14:07 36.2 C 59 L 16 176/82 H 99 - My Orders Last 24 Hours: My Active Orders 02/22/21 14:34 Iopamidol [Isovue-300 (61%)] 100 ml IV . DIRECTED PRN 02/22/21 14:45 Sodium Chloride 0.9% [Normal Saline] 75 ml IV ASDIRECTED - Assessment/Plan Last 24 Hours: My Active Orders 02/22/21 14:34 Iopamidol [Isovue-300 (61%)] 100 ml IV . DIRECTED PRN 02/22/21 14:45 Sodium Chloride 0.9% [Normal Saline] 75 ml IV ASDIRECTED
[2021-02-22] MEDS ORDERED: Iopamidol 612 MG/ML 100 ML Bottle IV PRN (14:34)
[2021-02-22] MEDS ORDERED: Iopamidol 612 MG/ML 50 ML SDV PO ONE (14:34)
[2021-02-22] MEDS: Alum Hydrox/Mag Hydrox/Simeth 15 ML, Lidocaine 2% 15 ML PO ONE ×4 (14:35→14:36)
[2021-02-22] MEDS ORDERED: Sodium Chloride 0.9% 75 ML IV SCH (14:45)
[2021-02-22] MEDS: Sodium Chloride 0.9% 10 ML Syringe FLUSH ONE ×2 (15:01→16:15)
[2021-02-22] MEDS ORDERED: HYDROmorphone 1 MG/ML Syringe IM ONE (15:38)
--- NOTE | 2021-02-22 17:00 | CRLCT ---
For Patients: As a result of the 21st Century Cures Act, medical imaging exams and procedure reports are released immediately into your electronic medical record. You may view this report before your referring provider. If you have questions, please contact your health care provider. INDICATION: Pain after EGD with esophageal dilation. TECHNIQUE: CT of the abdomen and pelvis with 100 cc Isovue 300 IV contrast. Oral contrast was administered. Coronal and sagittal reconstructions. COMPARISON: CT of the abdomen and pelvis 03/31/2018. FINDINGS: The liver, spleen, pancreas, and adrenal glands are negative. Cholecystectomy. Mild intra and extrahepatic bile duct dilation likely related to post cholecystectomy state. Hepatic and portal veins are patent. Symmetric enhancement of the kidneys. Partial duplication of the right renal collecting system. Small right renal cyst. 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 No hydronephrosis or ureteral dilation. No obstructing urinary calculi identified. The bladder and uterus are normal in appearance. Stable 3.7 cm cystic lesion in the left adnexa (series 2, image 144). Mild wall thickening of the distal esophagus could be inflammatory. Interval postoperative changes of gastric bypass. There is a short segment small bowel to small bowel intussusception in the central upper abdomen which is likely incidental (series 3, image 33). No obvious mass. Small bowel anastomosis in the mid abdomen. There are multiple mildly distended fluid-filled loops of proximal and distal small bowel, with intervening decompressed central small bowel loops. Findings could represent partial obstruction versus nonspecific enteritis changes mild to moderate amount of stool. Negative appendix. Trace free fluid in the pelvic cul-de-sac. No intraperitoneal free air. Aortoiliac vascular calcifications. No lymphadenopathy. Degenerative changes of the spine. The lung bases are clear. IMPRESSION: 1. Multiple mildly distended loops of proximal and distal small bowel, with intervening decompressed central small bowel loops. Findings could represent partial obstruction versus nonspecific enteritis changes. 2. Mild wall thickening of the distal esophagus could be inflammatory. No evidence of perforation. 3. Stable 3.7 cm left adnexal cystic lesion. This could be further evaluated with pelvic ultrasound. Please note that all CT scans at this facility use dose modulation, iterative reconstruction, and/or weight-based dosing when appropriate to reduce radiation dose to as low as reasonably achievable. Dictated by Lenka Peralta MD @ 02/22/2021 4:58:08 PM (Electronically Signed)
[2021-02-22] MEDS ORDERED: HYDROmorphone/Normal Saline 15 MG/30 ML PCA IV PRN (19:46)
[2021-02-22] MEDS ORDERED: Naloxone 0.4 MG/ML SDV IV PRN (20:00)
[2021-02-22] MEDS ORDERED: Pantoprazole 40 MG Vial IVPUSH ONE (20:00)
[2021-02-22] MEDS ORDERED: Dextrose 5%-Lactated Ringers 1,000 ML IV SCH (20:00)
[2021-02-22] MEDS: Montelukast 10 MG Tab PO SCH (20:07)
[2021-02-22] MEDS: Losartan 50 MG Tab PO SCH (20:07)
[2021-02-23] MEDS ORDERED: cefOXitin 2 GM in Sodium Chloride 0.9% 50 ML IV ONE ×2 (06:00→07:45)
[2021-02-23] MEDS ORDERED: Acetaminophen 500 MG Tab PO ONE (06:00)
[2021-02-23] MEDS ORDERED: fentaNYL 250 MCG/5 ML SDV ONE (07:47)
[2021-02-23] MEDS ORDERED: Ondansetron 4 MG/2 ML SDV ONE (07:48)
[2021-02-23] MEDS ORDERED: Succinylcholine 200 MG/10 ML MDV ONE (07:48)
[2021-02-23] MEDS ORDERED: Glycopyrrolate 0.2 MG/ML 5 ML MDV ONE (07:48)
[2021-02-23] MEDS ORDERED: Dexamethasone 4 MG/ML SDV ONE (07:48)
[2021-02-23] MEDS ORDERED: Rocuronium 50 MG/5 ML Vial ONE (07:48)
[2021-02-23] MEDS ORDERED: Propofol 200 MG/20 ML SDV ONE (07:48)
[2021-02-23] MEDS ORDERED: Neostigmine Methylsulfate 1 MG/ML 5 ML Syringe ONE (07:48)
[2021-02-23] MEDS ORDERED: Ketamine 18 MG in Sodium Chloride 0.9% 19.82 ML IV SCH (08:00)
[2021-02-23] MEDS ORDERED: Ketamine 500 MG/5 ML MDV IV SCH (08:00)
[2021-02-23] MEDS ORDERED: Ropivacaine 35 ML, dexAMETHasone 8 MG, EPINEPHrine 0.4 MG, Sodium Chloride 0.9% 42.6 ML NERVRT SCH ×4 (08:00)
[2021-02-23] MEDS ORDERED: Sodium Chloride 0.9% 10 ML ONE (08:48)
[2021-02-23] MEDS ORDERED: Meropenem 500 MG SDV ONE (08:48)
[2021-02-23] MEDS ORDERED: Bupivacaine 0.5% 50 ML MDV ONE (08:55)
[2021-02-23] MEDS ORDERED: Lidocaine 1% with EPINEPHrine 1:100,000 50 ML MDV ONE (08:55)
[2021-02-23] MEDS ORDERED: Bupivacaine 0.5% 50 ML MDV INJECT ONE (09:00)
[2021-02-23] MEDS ORDERED: Lidocaine 1% with EPINEPHrine 1:100,000 50 ML MDV INJECT ONE (09:00)
[2021-02-23] MEDS ORDERED: fentaNYL 100 MCG/2 ML SDV ONE (09:20)
[2021-02-23] MEDS: Ondansetron 4 MG/2 ML SDV IVPUSH PRN ×2 (10:29→22:57)
[2021-02-23] MEDS ORDERED: Dextrose 5%-Lactated Ringers 1,000 ML IV SCH (11:15)
[2021-02-23] MEDS ORDERED: Labetalol 20 MG/4 ML Syringe IVPUSH PRN (12:00)
[2021-02-23] MEDS ORDERED: Acetaminophen 500 MG Tab PO PRN (12:00)
[2021-02-23] MEDS ORDERED: Magnesium Sulfate/Water 2 GM in Premix Bag 1 BAG IV SCH (12:00)
[2021-02-23] MEDS ORDERED: diphenhydrAMINE 50 MG/ML SDV IVPUSH PRN (12:00)
[2021-02-23] MEDS ORDERED: Metoclopramide 10 MG/2 ML SDV IVPUSH PRN (12:00)
[2021-02-23] MEDS: Losartan 50 MG Tab PO SCH ×2 (12:05→21:23)
[2021-02-23] MEDS: fentaNYL/Normal Saline 600 MCG/30 ML PCA Vial IV PRN (13:00)
[2021-02-23] MEDS ORDERED: Naloxone 0.4 MG/ML SDV IV PRN (13:00)
[2021-02-23] MEDS ORDERED: Pantoprazole 40 MG Vial IVPUSH SCH (14:00)
[2021-02-23] MEDS: Acetaminophen 500 MG Tab PO SCH ×2 (14:32→21:22)
[2021-02-23] MEDS: cefOXitin 2 GM in Sodium Chloride 0.9% 50 ML IV SCH ×2 (14:40→19:49)
[2021-02-23] MEDS ORDERED: MVI, Adult with Vitamin K 10 ML, Thiamine 200 MG, Zinc/Copper/Manganese/Selenium 1 ML i... IV SCH ×4 (16:00)
[2021-02-23] MEDS: Heparin Sodium 5,000 Units/ML Vial SUBCUT SCH (18:21)
[2021-02-23] MEDS: Montelukast 10 MG Tab PO SCH (21:23)
[2021-02-24] MEDS: cefOXitin 2 GM in Sodium Chloride 0.9% 50 ML IV SCH ×4 (01:57→20:48)
[2021-02-24] MEDS: fentaNYL/Normal Saline 600 MCG/30 ML PCA Vial IV PRN ×2 (03:13→13:16)
[2021-02-24] MEDS ORDERED: Iopamidol 612 MG/ML 50 ML SDV PO ONE (04:53)
[2021-02-24] MEDS: Acetaminophen 500 MG Tab PO SCH ×2 (04:59→13:30)
[2021-02-24] MEDS: Heparin Sodium 5,000 Units/ML Vial SUBCUT SCH ×2 (04:59→18:39)
[2021-02-24] MEDS: Ondansetron 4 MG/2 ML SDV IVPUSH PRN (04:59)
[2021-02-24] MEDS: hydrOXYzine HCL 100 MG/2 ML SDV IM PRN ×2 (05:24→15:34)
[2021-02-24] MEDS: Dextrose 5%-Lactated Ringers 1,000 ML IV SCH (08:01)
[2021-02-24] MEDS: Bisacodyl 5 MG Tab PO SCH ×2 (08:02→20:49)
[2021-02-24] MEDS: Losartan 50 MG Tab PO SCH ×2 (08:03→20:50)
[2021-02-24] MEDS: Docusate Sodium 100 MG Cap PO SCH ×2 (08:03→20:50)
[2021-02-24] MEDS: SCOPOLAMINE PATCH CHECK TOP SCH (08:05)
[2021-02-24] MEDS: Hydrochlorothiazide 12.5 MG Cap PO SCH ×2 (11:13→20:49)
[2021-02-24] MEDS ORDERED: MVI, Adult with Vitamin K 10 ML, Thiamine 200 MG, Zinc/Copper/Manganese/Selenium 1 ML i... IV SCH ×4 (16:00)
[2021-02-24] MEDS: Pantoprazole 40 MG Delayed-Release Granules 1 Packet PO SCH (17:00)
[2021-02-24] MEDS: Montelukast 10 MG Tab PO SCH (20:50)
[2021-02-24] MEDS: Lidocaine 2% 60 ML, Alum Hydrox/Mag Hydrox/Simeth 360 ML PO PRN ×2 (22:20)
[2021-02-25] MEDS: Lidocaine 2% 60 ML, Alum Hydrox/Mag Hydrox/Simeth 360 ML PO PRN ×4 (01:35→23:27)
[2021-02-25] MEDS: Acetaminophen 500 MG Tab PO SCH ×4 (01:57→21:20)
[2021-02-25] MEDS: Dextrose 5%-Lactated Ringers 1,000 ML IV SCH (03:02)
[2021-02-25] MEDS: fentaNYL/Normal Saline 600 MCG/30 ML PCA Vial IV PRN (03:08)
[2021-02-25] MEDS: Heparin Sodium 5,000 Units/ML Vial SUBCUT SCH ×2 (05:47→17:13)
--- NOTE | 2021-02-25 08:05 | PN ---
DATE OF SERVICE: 02/25/2021 SUBJECTIVE: Teresita reports her pain is controlled with the THERMOMETER MAKER. Oral intake has been 2610. Urine output 5500. She states she had a rough night. Feels achy all over, slept in the chair due to increased heartburn. She does have the Maalox with lidocaine ordered, but states it does not help. REVIEW OF SYSTEMS: Remainder of review of systems negative for any pertinent positives and negatives. OBJECTIVE: GENERAL: Teresita is a pleasant 60-year-old female. VITAL SIGNS: TPR is 98.6, 73, 16, blood pressure 133/65. HEENT: Negative. NECK: Supple. HEART: Regular rate and rhythm. LUNGS: Clear. ABDOMEN: Dressings dry and intact. Abdominal binder is on. EXTREMITIES: Without peripheral edema. ASSESSMENT: Exploratory laparotomy with: 1. Small-bowel resection. 2. Excision of peritoneal implant overlying small bowel. 3. Repair of incarcerated umbilical hernia. 4. Placement of Interceed mesh. POSTOPERATIVE DIAGNOSES: 1. Bile reflux associated with partial small bowel obstruction secondary to adhesion and distortion of the jejunojejunostomy. 2. Peritoneal implant overlying small bowel, 2 cm. 3. Incarcerated umbilical hernia. Date of procedure 02/23/2021. Surgeon: Demian Brooke MD. PLAN: 1. Discontinue THERMOMETER MAKER and continuous pulse ox. 2. Oxycodone 5 mg q.6 hours p.r.n. pain. 3. Step 3 gastric bypass diet. 4. Saline lock IV. 5. Discontinue antecubital IV. 6. Milk of magnesia 30 mL b.i.d. 7. Discontinue straws. The patient is Charline-en-Y gastric bypass surgery. 8. Continue to ambulate and use incentive spirometer. 9. Plan discharge in a.. Lenka Munroe PA-C /[id number]
--- NOTE | 2021-02-25 08:11 | PN ---
DATE OF SERVICE: 02/24/2021 The patient has been afebrile with stable vital signs. She had little bit of heartburn after the upper GI x-ray this morning, likely related to some irritation of the esophagus, but not bilious emesis as one would expect. Otherwise, urine output has been satisfactory, and she is tolerating a step 1 diet. The plan will be to back down on the IV rate, go to a step 2 diet today. She will be put her on medications in terms of pain control with the RAG WASHER fentanyl up to 25 mcg RAG WASHER dose and with the throat irritation, I will have pharmacy mix 2 ounces of viscous lidocaine along with 12 ounces of Maalox to be taken 1 to 2 tablespoons comfort Brooke MD /[id number]
[2021-02-25] MEDS: Magnesium Hydroxide 400 MG/5 ML Susp 30 ML Cup PO SCH ×2 (08:12→21:20)
[2021-02-25] MEDS: oxyCODONE 5 MG Tab PO PRN ×4 (08:12→21:15)
[2021-02-25] MEDS: Bisacodyl 5 MG Tab PO SCH ×2 (08:13→21:19)
[2021-02-25] MEDS: Losartan 50 MG Tab PO SCH ×2 (08:13→21:16)
[2021-02-25] MEDS: SCOPOLAMINE PATCH CHECK TOP SCH (08:17)
[2021-02-25] MEDS: Docusate Sodium 100 MG Cap PO SCH ×2 (08:17→21:16)
[2021-02-25] MEDS: Hydrochlorothiazide 12.5 MG Cap PO SCH ×2 (08:17→21:19)
[2021-02-25] MEDS ORDERED: Cyanocobalamin (Vitamin B12) 1,000 MCG/ML SDV IM ONE (09:00)
--- NOTE | 2021-02-25 10:05 | CR ---
UGI Limited HISTORY: Postbariatric surgery/revision FINDINGS: Patient swallowed water-soluble contrast. Upright views of the abdomen show no evidence of extravasation or obstruction. IMPRESSION: Status post bariatric surgery/revision No extravasation or obstruction seen
--- NOTE | 2021-02-25 11:35 | HP ---
The patient underwent an upper endoscopy earlier today. It did show quite a bit of bile in the Charline limb and around the pouch suggestive of partial small bowel obstruction. After the endoscopy, the patient was discharged, but soon came back to the emergency room after calling with complaints of abdominal distention and bloating. CT scan was obtained in the emergency room that shows a partial small bowel obstruction which would be consistent with the patient's clinical findings. We were attempting to see if this would resolve somewhat with some time, but given the events of today, we will plan to admit the patient and proceed with a limited laparotomy and release of small bowel obstruction and bowel resection as indicated. This is being set up for tomorrow morning. We will check some labs this evening and plan will be to proceed with exploratory laparotomy tomorrow morning. The potential risks of the procedure including bleeding, infection, leaks from any GI tract closures, problems with persistence or recurrence of the problem over time were reviewed along with the remote possibility of cardiopulmonary, septic, or hemorrhagic complications leading to , and the patient wishes to proceed. The patient's was present for the examination and discussion. Demian Brooke MD /[id number]
[2021-02-25] MEDS: Cyclobenzaprine 10 MG Tab PO PRN (12:06)
[2021-02-25] MEDS: Pantoprazole 40 MG Delayed-Release Granules 1 Packet PO SCH (15:30)
[2021-02-25] MEDS: Montelukast 10 MG Tab PO SCH (21:20)
[2021-02-26] MEDS: oxyCODONE 5 MG Tab PO PRN ×2 (06:03→10:01)
[2021-02-26] MEDS: Acetaminophen 500 MG Tab PO SCH ×2 (06:04→13:49)
[2021-02-26] MEDS: Heparin Sodium 5,000 Units/ML Vial SUBCUT SCH (06:04)
[2021-02-26] MEDS: Bisacodyl 5 MG Tab PO SCH (08:29)
[2021-02-26] MEDS: Docusate Sodium 100 MG Cap PO SCH (08:29)
[2021-02-26] MEDS: Hydrochlorothiazide 12.5 MG Cap PO SCH (08:29)
[2021-02-26] MEDS: Losartan 50 MG Tab PO SCH (08:29)
[2021-02-26] MEDS: Magnesium Hydroxide 400 MG/5 ML Susp 30 ML Cup PO SCH (08:30)
[2021-02-26] MEDS: Cyclobenzaprine 10 MG Tab PO PRN (10:02)
--- NOTE | 2021-02-27 06:50 | DISCH ---
ADMISSION DIAGNOSES: Partial small bowel obstruction, status post Charline-en-Y gastric bypass surgery, gastroesophageal reflux disease, hypertension, obstructive sleep apnea. DISCHARGE DIAGNOSES: Exploratory laparotomy with: 1. Small bowel resection. 2. Excision of peritoneal implant overlying the small bowel. 3. Repair of incarcerated umbilical hernia. 4. Placement of Interceed mesh. POSTOPERATIVE DIAGNOSES: 1. Bile reflux associated with partial small bowel obstruction secondary to adhesions and distortion of the jejunojejunostomy. 2. Peritoneal implant overlying small bowel 2 cm. 3. Incarcerated umbilical hernia. Date of procedure 02/23/2021. Surgeon: Demian Brooke MD HISTORY: Teresita Araiza was having problems with GERD. She had an EGD on 02/22/2021. The EGD was uneventful, but she did go downtown for a few hours and then called back stating she had severe abdominal pain and bloating. She was seen in the emergency room on 02/22/2021 at 1412 and was diagnosed with a partial small bowel obstruction. Surgery was on 02/23/2021. She had no operative complications. On postop day 1, she continued with pain management with a FARM MORTGAGE AGENT. Intake and output were adequate. Tolerated a step 1 diet, was advanced to a step 2. On postop day 3, FARM MORTGAGE AGENT was discontinued, and she was started on oral pain medication. Postop day 3, she had a bowel movement. Diet was advanced to a step 3, and she was able to be discharged to home without any complications. PHYSICAL EXAMINATION: GENERAL: Teresita Araiza is a pleasant 60-year-old female. VITAL SIGNS: Height is 5 feet 7 inches, weight is 155 pounds, TPR 96.2, 71, 16, blood pressure 127/66. HEENT: Negative. NECK: Supple. HEART: Regular rate and rhythm. LUNGS: Clear. ABDOMEN: Aquacel dressings on. Abdominal binder is on. EXTREMITIES: Without peripheral edema. DISPOSITION: Discharged to home. CONDITION: Stable and improving. FOLLOWUP APPOINTMENT: With Lenka Munroe PA-C, on 03/06/2021 at 10:15 a.m. HOME MEDICATIONS: Colace 100 mg p.o. b.i.d., #60; oxycodone 5 mg q.6 hours p.r.n. pain, #12. She is to resume her home medication. DIET: Step 3 gastric bypass diet. Drink 8 to 10 glasses of water a day. ACTIVITY: No lifting greater than 10 pounds for 6 weeks. Walk [address] for 1 week or while on narcotic medication. Shower/bathing: May shower. Keep operative site clean and dry. Wear abdominal binder for 6 weeks if tolerated. Take off Aquacel dressing in 3 days. Notify provider if any fever, increased pain, swelling, redness, drainage, nausea, or vomiting. Use incentive spirometer 10 times every hour while awake. /[id number]
--- NOTE | 2021-03-12 07:52 | PN ---
DATE OF SERVICE: 02/22/2021 Ms. Araiza presents with ongoing postprandial abdominal pain along with some nausea and bilious emesis. Upper endoscopy earlier today showed only a very minimal stricture which should not be creating the degree of symptoms that she was having. There was a large amount of bile present. She does report postprandial abdominal pain occurring around 20 to 30 minutes post procedure across the upper and mid abdomen. Overall, this would be suggestive of a partial small bowel obstruction, probably following jejunojejunostomy. Rather than go home and then come back, the patient wished to be admitted at this time given the intermittent paucity of inpatient beds, and we will plan to proceed with an exploratory laparotomy tomorrow morning with lysis of adhesions and revision of the jejunojejunostomy or other areas of small bowel stricturing. Procedure will be undertaken tomorrow. Demian Brooke MD /[id number]
--- NOTE | 2021-03-12 10:42 | OR ---
DATE OF PROCEDURE: 02/23/2021 SURGEON: Demian Brooke MD PREOPERATIVE DIAGNOSIS: Partial small bowel obstruction. POSTOPERATIVE DIAGNOSES: 1. Partial small bowel obstruction associated with bile reflux secondary to adhesions and distortion of the jejunojejunostomy. 2. Peritoneal implant overlying small bowel. 3. Incarcerated umbilical hernia. OPERATIVE PROCEDURE: Exploratory laparotomy with: 1. Small bowel resection (85037). 2. Excision of peritoneal implant overlying proximal small bowel (63047). 3. Repair of incarcerated umbilical hernia (74683). 4. Placement of Interceed mesh to limit recurrent adhesion formation between the abdominal wall and pelvic wall and underlying viscera (25535). ANESTHESIA: General. INDICATION FOR PROCEDURE: Please see notes dictated yesterday. Potential risks of procedure including bleeding, infection, injury to underlying viscera, possible recurrence of the problem over time as well as possibility of cardiopulmonary, septic, or hemorrhagic complications leading to were discussed, and the patient wishes to proceed. DETAILS OF PROCEDURE: The patient was taken to the operating room, and after general endotracheal anesthesia was induced, a Broderick catheter was inserted and the abdomen prepped and draped. A midline incision from the umbilicus roughly a handsbreadth towards the xiphoid was made and carried down through the full-thickness abdominal wall. Upon entering the peritoneal cavity, general exploration was undertaken. The patient was noted to have some quite dense and aggressive appearing adhesions at the recent jejunojejunostomy. This was obviously the primary cause of the patient's symptoms as the Charline limb leaving after that was quite dilated indicating a degree of obstruction at that level with resultant bile reflux into the Charline limb. Apart from that, there was a 2 cm linear peritoneal implant over the proximal Charline limb. This was excised and sent for histologic evaluation. One additional finding was that of incarcerated umbilical hernia on initial division of abdominal wall to hernia sac was excised along with contents and sent for specimen evaluation. At this point, the Charline limb was dissected off the point where it entered the jejunojejunostomy with the HARSHAL stapler. Small bowel was resected with the HARSHAL stapler as was the underlying mesentery, and this allowed the patient with very satisfactory Charline limb length with only 3 cm of bowel was resected. The GI anastomosis was then accomplished between the end of the Charline limb and the small bowel roughly 20 cm distal to the first anastomosis with internal firing of the Endo-HARSHAL 60 mm stapler. Common opening was then closed transversely with the same stapler, the anastomosis was reinforced with 3-0 Vicryl stitch and the mesentery defect closed with 2-0 Vicryl stitch. Palpation of the remaining more proximal anastomosis in what had been the biliopancreatic limb and the proximal most common limb showed that to be satisfactorily patent. At this point, the abdomen was irrigated with antibiotic-containing saline solution. The bilateral transversus abdominis plane blocks were then placed, and the midline fascia was then approximated with #2 Vicryl stitch. This began in a location at the umbilical level where the umbilical hernia was then repaired. This continued up superiorly through the length of the supraumbilical fascia. The fascia itself was anesthetized with 1% lidocaine mixed with Marcaine, and the subcutaneous tissue approximated with 2 layers of 2-0 and 3-0 Vicryl stitch and the skin with romel. Prior to closure of the fascia, Interceed mesh was placed underneath the incision down towards the pelvis to limit the recurrent adhesion formation as well. The patient was taken to the recovery room in satisfactory condition. There were no evident complications. Demian Brooke MD /[id number]
== END 2021-02-26 15:15 | disposition home or self-care (01) | DRG 221 ==
LOC: JP.ED 13:51 → JP.MS 18:06
PROVIDERS: ADMIT Surgery; ATTEND Surgery
PROC: 0DB80ZZ Excision of Small Intestine, Open Approach (ICD-10-PCS; principal; 2021-02-23)
PROC: 0DBW0ZZ Excision of Peritoneum, Open Approach (ICD-10-PCS; 2021-02-23)
PROC: 0WQF0ZZ Repair Abdominal Wall, Open Approach (ICD-10-PCS; 2021-02-23)
PROC: 3E0M05Z Introduction of Adhesion Barrier into Peritoneal Cavity, Open Approach (ICD-10-PCS; 2021-02-23)
DX: K95.89 Other complications of other bariatric procedure (principal); K56.51 Intestinal adhesions [bands], with partial obstruction; K21.9 Gastro-esophageal reflux disease without esophagitis; G47.33 Obstructive sleep apnea (adult) (pediatric); I10 Essential (primary) hypertension; K42.0 Umbilical hernia with obstruction, without gangrene; H54.7 Unspecified visual loss; K59.09 Other constipation; K57.90 Diverticulosis of intestine, part unspecified, without perforation or abscess without bleeding; M54.9 Dorsalgia, unspecified; M54.2 Cervicalgia; M19.90 Unspecified osteoarthritis, unspecified site; Z88.1 Allergy status to other antibiotic agents; Z79.899 Other long term (current) drug therapy
CPT/HCPCS: 36415; 74177; 74240; 74240-26; 80053; 82728; 83735; 84100; 85027; 88302; 88305; 88307; 96372; 99285-25; A9270-GY; C9113; J0171; J0330; J0694; J1100; J1170; J1644; J2185; J2405; J2704; J2710; J2765; J2795; J3010; J3410; J3411; J3420; J3490; J7121; Q9967